=== PATIENT | male | born 1945 | race Caucasian/White ===

== ENCOUNTER 2017-02-19 20:54 | Inpatient (IN) | payer MEDICARE ==
[~2017-02-19] VITALS: Ht 175.3 cm; Wt 45.0 kg
--- NOTE | ~2017-02-19 | PR ---
[place], [place] PROGRESS NOTE [facility] [id number] UNIT #: [id number] ROOM: 412 DOCTOR: SALTY ASHRAF MD,SHEILA BIRTHDATE: [birth year] DOS: 02/21/2017 PULMONARY PROGRESS NOTE SUBJECTIVE: The patient has been noted upset this morning. Respiratory cifuentes, he has been doing much better. The respiratory symptoms of the patient have been improving with reduction in the cough, wheezing and shortness breath. Denies symptoms of chest pain, nausea, vomiting, or diarrhea. OBJECTIVE: VITAL SIGNS: For the patient which have been recorded showed normal temperature, respiratory rate 16, heart rate 57, blood pressure 106/54. Pulse oxygen saturation on 3 liters nasal canula 99% saturation. HEENT: Examination shows head was atraumatic. Eyes nonicterus. NECK: Supple. CARDIOVASCULAR: S1, S2 audible. LUNGS: Noted without any wheezing or crackles at the present time. Breaths are noted mildly decreased bilaterally. ABDOMEN: Soft and nontender. LABORATORY DATA: Prealbumin level was noted as 11. IMPRESSION: The patient with resolving acute exacerbation of chronic obstructive pulmonary disease with acute tracheobronchitis, severe protein calorie malnutrition status. Lung malignancy was suspected in the left side for this patient with gradual increase in the tumor size the patient refusal of any further assessment and management. PLAN OF TREATMENT: The patient has been noted with significant improvement and reduction of respiratory symptoms, could be considered for possible home discharge today for the patient if considered by the primary care physician. The discharge planning has been conveyed to the primary care doctor. SHEILA POND MD CM:PNTRANS [id number] SHEILA ASHRAF MD 02/22/17127 interface
--- NOTE | ~2017-02-19 | DS ---
[place], [place] DISCHARGE SUMMARY NAME: JESS CASTELLANO [facility] #: [id number] UNIT #: [id number] ROOM: 412 DOCTOR: PERRY MARIA MD BIRTHDATE: [birth year] DOS: 02/21/2017 DIAGNOSES: 1. Acute exacerbation of chronic obstructive pulmonary disease. 2. Lung mass with possible suspected lung malignancy. No workup planned. 3. Protein-calorie malnutrition. 4. Chronic respiratory failure. 5. Adult failure to thrive. MEDICATIONS: Same as at home. New prescriptions given for Ceftin 250 twice daily for 5 days and tapering dose of prednisone. HOSPITAL COURSE: This is a 71-year-old patient who presents with complaints of difficulty breathing. He was admitted under Dr. Krause's services. Breathing treatments, oxygen supplementation, antibiotics, and steroids were given. This morning, the patient states that he feels good and he wants to go home to see a grandchild. He does not want any further investigations or testing for his mass which could be an underlying malignancy. The patient also wants to be kept comfortable. The DNRCC papers were signed. Echocardiogram was ordered, which showed the patient had no pericardial effusion, normal LV function. The plan therefore is to discharge him to home today. Follow up with his PCP. PERRY MARIA MD CM:DISCHARG [id number] PERRY MARIA MD 02/21/17 1103 interface
--- NOTE | ~2017-02-19 | PR ---
[place], [place] PROGRESS NOTE NAME: JESS CASTELLANO [facility] #: [id number] UNIT #: [id number] ROOM: 412 DOCTOR: PERRY MARIA MD BIRTHDATE: [birth year] DOS: SUBJECTIVE: The patient states that he feels good and wants to go home, does not have any complaints today. His cough is loose and is coughing up sputum. OBJECTIVE: VITAL SIGNS: Blood pressure is 106/54, pulse of 50s, respirations 18, temperature 98.9. GENERAL: Quite unkempt with a long hoffman. LUNGS: Diminished breath sounds, extremely poor air entry. HEART: Regular. ABDOMEN: Soft, scaphoid. EXTREMITIES: Without any edema. ASSESSMENT AND PLAN: 1. Acute exacerbation of chronic obstructive pulmonary disease. 2. Possible malignancy of the lungs, but the patient has decided not to proceed with any further workup. 3. Protein-calorie malnutrition, severe. 4. Adult failure to thrive. The patient has already been on medicines and has made some improvement and he wants to go home today. Plan is therefore to discharge him to home. PERRY MARIA MD CM:PNTRANS 0911 PERRY MARIA MD 02/22/17 002 interface
--- NOTE | ~2017-02-19 | CON ---
[place], [place] REPORT OF CONSULTATION NAME: JESS CASTELLANO [facility] #: [id number] UNIT #: [id number] ROOM: 412 DOCTOR: SALTY ASHRAF MD,SHEILA BIRTHDATE: [birth year] DOS: 02/20/2017 PULMONARY CONSULTATION EVALUATION AND MANAGEMENT REASON FOR CONSULTATION: Assess the patient with progressively enlarging mass for the patient in the left lung as well as increase in his respiratory symptoms of COPD exacerbation. HISTORY OF PRESENT ILLNESS: This is a 71-year-old white male presented to the hospital Emergency Room for patient on 02/19/2017. The patient has been noted with progressive increased symptoms of shortness of breath, which has been ongoing for the past several days. The patient has been noted with symptoms of chest congestion, increased coughing, inability to expectorate sputum. Denies symptoms of chest pain, but noted with symptoms of progressive increased symptoms prior to taking his medication nebulizer at home. He has been also using the oxygen supplementation as well, currently 6 L of nasal cannula. The patient stated that the medication use has not been working, he decided to come to the hospital after assessment in the Emergency Room, noted with recurrent acute exacerbation of COPD, the patient has been hospitalized. REVIEW OF SYSTEMS: CONSTITUTIONAL: Fatigue and tiredness noted without any symptoms of fever or chills. EYES: Denies any burning, redness, or tenderness. EARS, NOSE AND THROAT: No sore throat, hoarseness, otalgia, or postnasal drainage. GASTROINTESTINAL: Denies any dysphagia, nausea, vomiting, diarrhea, abdominal pain, hematemesis, melena, or hematochezia. The patient has been noted gradual weight loss, has lost about 10 or 12 pounds of body weight for the patient in the last 4 months. GENITOURINARY: No dysuria, suprapubic pain, or hematuria. MUSCULOSKELETAL: Denies acute joint pain, redness, or tenderness. SKIN: No lesions or rashes. CENTRAL NERVOUS SYSTEM: Denies dizziness, headache or diplopia. Remaining systems was reviewed with the patient, they were noted all negative. PAST MEDICAL HISTORY: The patient was noted with, 1. History of advanced centrilobular emphysema. 2. Chronic hypoxic respiratory failure, current use of oxygen supplementation 4 L nasal cannula. 3. Suspected lung cancer, left side, further assessment and management since his past admission of October 2016. 4. Jbud-ev-fplzrfwg senile hearing loss. 5. History of nicotine dependence for this patient intermittently. SURGICAL HISTORY: Noted catheterization and coronary artery stent insertion. The intervention was done in 1998. SOCIAL HISTORY: The patient is , has 2 children, lives at home. [place], [place] REPORT OF CONSULTATION NAME: JESS CASTELLANO UNIT #: [id number] ROOM: 412 DOCTOR: SALTY ASHRAF MD,SHEILA BIRTHDATE: [birth year] Smoking has been noted with patient intermittently with the use of tobacco pipe for this patient and cigarette smoking. Denies any history of alcohol use or illicit drug use. Denies any dependence of alcohol. 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 FAMILY HISTORY: The patient's father from complication of pancreatic cancer. Mother at 80 years old, complication related to COPD. CURRENT MEDICATIONS: Administered noted use of DuoNeb, aspirin, metoprolol tartrate, Symbicort and Rocephin. DRUG ALLERGY HISTORY: The patient was noted as no known drug allergies. PHYSICAL EXAMINATION: GENERAL: A 71-year-old white male who has been noted currently awake and alert, sitting on side of bed without any distress. Height of 5 feet 9 inches, weight of 99 pounds, BMI 14.6. VITAL SIGNS: For the patient shows a normal temperature, respiratory rate of 19-22. Heart rate of 61-101, blood pressure 91/57-125/77. Pulse oxygen saturation of the patient recorded as 100% on 3 liters canula, previously noted as 97% on 4-5 liters nasal cannula supplementation of oxygen. HEENT: Examination shows head was atraumatic. Eyes nonicterus. NECK: Supple. CARDIOVASCULAR SYSTEM: S1, S2 is audible. LUNGS: The patient was noted with diffuse expiratory wheezing. No crackles. ABDOMEN: Soft, flat, nontender. EXTREMITIES: Showed no edema, clubbing, cyanosis, loss of muscle mass. SKIN: Showed no lesions or rashes. MUSCULOSKELETAL SYMPTOMS: No acute deformities. LABORATORY DATA: CMP of the patient that was done for this patient on February 19, BUN 14, creatinine was normal. Carbon dioxide 37. Albumin 2.8. CBC of the patient on February 19 on admission, hemoglobin 9.9, hematocrit 31.8, platelet count was normal. WBC count was normal. BMP this morning, glucose 167, remaining BMP normal. CBC this morning, hemoglobin 9.4, hematocrit 30.4, platelet count was normal. WBC count remains normal. Chest x-ray of the patient that was done for the patient this morning for the patient was personally reviewed and compared to the previous chest x-ray shows progressive enlarging the nodule for the patient currently noted as a mass lesion measured at 4.7 cm in size for the patient as comparison to the chest x-ray of the patient on 10/15/2016. IMPRESSION: 1. The patient who has been currently admitted to the hospital with acute on chronic hypoxic respiratory failure for this patient requiring increased oxygen supplementation with acute exacerbation of chronic obstructive pulmonary disease and acute bronchitis. 2. Suspected lung malignancy for this patient, which has not been further assessed or treated for the patient because they refused the further workup or management as per patient. [place], [place] REPORT OF CONSULTATION NAME: JESS CASTELLANO UNIT #: [id number] ROOM: [facility] DOCTOR: SALTY ASHRAF MD,SHEILA BIRTHDATE: [birth year] 3. Anemia, most likely of chronic disease as well. 4. 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 5. History of coronary artery disease. PLAN OF TREATMENT: The patient will be continued on current dose of IV Solu-Medrol, bronchodilators and antibiotics as in progress. The dose of the Solu-Medrol for the patient will be changed, increased to 40 mg for 8 hours because of severe wheezing. The patient understands for this patient already known that he has a suspected cancer of the lung, which has been increasing and does not wish any further assessment or intervention. Other supportive therapy, plan and management as well. Increase the nutritional support for this patient with as nutritional supplements. Ordered a prealbumin level for the patient for the morning as well. Comfort measures for the patient will be continued per his code status as well. Thanks you for allowing me to participate in the care of this patient. SHEILA POND MD CM:CONSTR:REPORT OF CONSULTATION 1518 02/21/17 0304 interface
--- NOTE | ~2017-02-19 | CON ---
[place], [place] REPORT OF CONSULTATION NAME: JESS CASTELLANO [facility] #: [id number] UNIT #: [id number] ROOM: 412 DOCTOR: ANGEL ANDREWS MD BIRTHDATE: [birth year] DOS: 02/20/2017 HISTORY OF PRESENT ILLNESS: The patient is well known to me, but I have not seen him for a long time. A 71-year-old gentleman with a history of questionable emphysema and lung cancer. The patient admitted with severe shortness of breath. The patient uses 6 liters of oxygen at home. The patient became significantly short of breath. I was consulted. He had episodes of rapid atrial fibrillation, now he is back into sinus rhythm to sinus tachycardia. He was totally asymptomatic with that. No history of previous atrial fibrillation. Right now, he is comfortable, does have shortness of breath, no chest pain, no GI issues. No neurological issues. Appears to be anxious. PAST MEDICAL HISTORY: COPD, myocardial infarction, lung cancer, hypertension, noncompliance. PAST SURGICAL HISTORY: History of cardiac stent. The patient also had a lot of pneumonia in the past. SOCIAL HISTORY: Heavy smoker. Denies any alcohol abuse. FAMILY HISTORY: Positive for coronary artery disease. REVIEW OF SYSTEMS: RESPIRATORY: He has significant shortness of breath. HEENT: Does have some visual disturbances. CARDIOVASCULAR: No chest discomfort, did have palpitation. GASTROINTESTINAL: No nausea, no vomiting. GENITOURINARY: No dysuria, hematuria. NEUROLOGIC: No syncope. All other review of systems are negative. PHYSICAL EXAMINATION: VITAL SIGNS: His blood pressure is 110/70. He is now back into sinus rhythm. NECK: Supple, no JVD, no thyromegaly, no lymphadenopathy. LUNGS: Diminished breath sounds bilaterally with severe coarse wheezing. HEART: Sounds are regular. ABDOMEN: Soft, nontender. NEUROLOGICAL: Stable. LABORATORY DATA: Hemoglobin 9, hematocrit 31.8. Electrolytes are normal. Troponins have been negative. Chest x-ray shows emphysema, no obvious evidence of pneumonia. Potassium is 4.4, magnesium is 2.4, protein is 6.8. Liver functions are normal. Creatinine is 0.81. Chest x-ray revealed left perihilar mass, it is again demonstrated larger than before. IMPRESSION: The patient with chronic obstructive pulmonary disease, lung cancer, episode of supraventricular tachycardia, history of myocardial infarction. [place], [place] REPORT OF CONSULTATION [id number] UNIT #: [id number] ROOM: 412 DOCTOR: ANGEL ANDREWS MD BIRTHDATE: [birth year] RECOMMENDATIONS: The patient used to be on atenolol in the past, and he stopped taking it because he ran out, and he had episodes of supraventricular tachycardia. I am going to start him on metoprolol 25 mg twice a day because of his known coronary artery disease and supraventricular tachycardia. Continue the other medications as ordered. We will get an echocardiogram to assess his ejection fraction. Continue the chronic obstructive pulmonary disease management, and I will follow up. ANGEL ANDREWS MD CM:CONSTR:REPORT OF CONSULTATION 0801 02/20/17 0839 interface
--- NOTE | ~2017-02-19 | WRIGHTHP ---
[place], [place] PATIENT HISTORY AND PHYSICAL EXAM NAME: JESS CASTELLANO [facility] #: [id number] UNIT #: [id number] ROOM: 412 DOCTOR: LUIS DE LUNA MD BIRTHDATE: [birth year] DOS: HISTORY OF PRESENT ILLNESS: 1. The patient is a 71-year-old gentleman with a past medical history of left upper lung mass, increasing in size, probable malignancy. The patient decided any further investigation or treatment. 2. Chronic end-stage advanced COPD with oxygen dependence and chronic respiratory failure. 3. Generalized weakness and adult failure to thrive. 4. The patient developed some increased shortness of breath, wheezing and cough and presented to the Emergency Department. For acute over chronic respiratory failure, we have the DNR-CC arrest code status at this time. After admission, the patient says his breathing has significantly improved with treatment and he is feeling much better. The patient had some purulent sputum prior to coming to the hospital and he said he was not eating well because of his sputum production for some reason. No chest pain, no dizziness or fainting episode. No other GI or urinary symptoms. REVIEW OF SYSTEMS: LUNGS: Acute over chronic shortness of breath and purulent sputum. GASTROINTESTINAL: No nausea, vomiting, diarrhea, constipation. CARDIOVASCULAR: No chest pains or palpitations. SOCIAL HISTORY: The patient lives by himself. Denies smoking cigarettes anymore. Denies any alcohol or drug abuse. FAMILY HISTORY: Noncontributory. ALLERGIES: No known drug allergy. PHYSICAL EXAMINATION: VITAL SIGNS: Blood pressure 118/65, heart rate of 98 beats per minute, breathing 18 times per minute, temperature 98 degrees Fahrenheit. GENERAL APPEARANCE: The patient is alert and oriented x 3, in no visible distress. Generalized weakness, generalized muscle wasting. HEENT AND NECK: Extraocular movements are intact. Sclerae are anicteric. Oral mucosa is moist and clean. No obvious facial weakness. Neck is supple without any lymphadenopathy. No thyromegaly. No JVD. No carotid arterial bruits. LUNGS: Decreased breath sounds all over on lung auscultation and slight expiratory wheezing. CARDIOVASCULAR SYSTEM: Heart rate is regular in rate and rhythm. S1 and S2 normally audible. No significant murmur or any other abnormal cardiac sounds. ABDOMEN: Soft, nontender. No obvious organomegaly. Bowel sounds are present. No obvious herniation. EXTREMITIES: Without significant cyanosis or edema. Warm to touch. CENTRAL NERVOUS SYSTEM: Alert and oriented x 3. Cranial nerves 2- 12 are intact. Speech is normal. The patient is able to move all extremities. Normal muscle strength. Deep tendon reflexes are equal on both sides. Plantars were [place], [place] PATIENT HISTORY AND PHYSICAL EXAM [id number] UNIT #: [id number] ROOM: [facility] DOCTOR: LUIS DE LUNA MD BIRTHDATE: [birth year] downgoing. LABORATORY DATA: Chest x-ray showing left perihilar mass, appearing larger than last exam. Normal serum electrolytes. Albumin level low at 2.8. Normal serum electrolytes, hemoglobin 9.4. IMPRESSION: The patient has acute over chronic respiratory failure and exacerbation of COPD, treated with oxygen, corticosteroids, bronchodilators, and antibiotic, and his breathing has significantly improved and is feeling much better. I will also get a sputum culture. Left perihilar mass, increasing in size, apparently malignant. The patient had decided against any further testing or treatment in [address]. Delvalle to evaluate the patient. The patient used to maintain a DNR comfort care code status, at this time is labeled as having DNR arrest code status so he has been put on a hide shaker. The patient developed some supraventricular tachycardia during the night and Dr. Retana, the spar machine operator, was consulted, who started him on metoprolol and his heart rate seems to be well controlled now. Generalized weakness and adult failure to thrive. The patient to work with Physical Therapy and we are taking bedsore precautions including using an air mattress and every 2 hour turning and taking fall precautions. Moderate protein-calorie malnutrition with albumin level of 2.8. Dietary to work with the patient. LUIS DE LUNA MD CM:HISPHYS:PATIENT HISTORY AND PHYSICAL EXAMINATION 26 03 LUIS DE LUNA MD 02/20/17 2004 interface
[~2017-02-19 20:54] MED LIST: ALBUTEROL2.5 MG/0.5 INH; AMOXICILLIN500 MG PO; ANTIBIOTIC O500 U/GM TP; ASPIRIN EC325 MG PO; ATIVAN ORAL C2 MG/ML PO; AUGMENTIN 875-875 MG PO; CLARITIN10 MG PO; DARVOCET N 1001 TAB PO; HYDROCODONE BIT1 T11 PO; MEDROL DOSEPAK4 MG PO; MORPHINE S20 MG/1 ML PO; SPIRIVA18 MCG PO; SYMBICORT1 AE1 INH; ULTRAM50 MG PO; ZITHROMAX Z PA250 MG PO
[2017-02-19 21:01] VITALS: BP 136/86
[2017-02-19 22:13] LABS: BASO % 0.4 % (0.0-1.0); EOS # 0.4 10*3/uL (0.0-0.4); EOS % 4.1 % (1.0-4.0); HEMATOCRIT 31.8 % (42.0-52.0); HEMOGLOBIN 9.9 g/dl (14.0-18.0); LYMPH # 1.5 10*3/uL (1.3-4.4); LYMPH % 15.1 % (27.0-41.0); MEAN CORPUSCULAR HGB 30.2 pg (27.0-31.0); MEAN CORPUSCULAR HGB CONC 31.1 g/dl (33.0-37.0); MEAN PLATELET VOLUME 8.8 fl (9.6-12.3); MONO # 0.7 10*3/uL (0.1-1.0); MONO % 7.3 % (3.0-9.0); NEUT # 7.2 10*3/uL (2.3-7.9); NEUT % 72.9 % (47.0-73.0); PLATELET COUNT AUTOMATED 324 10*3/uL (130-400); RED BLOOD COUNT 3.28 10*6/uL (4.50-5.90); RED CELL DISTRI WIDTH 13.9 % (0-14.5); WHITE BLOOD COUNT 9.9 10*3/uL (4.8-10.8)
[2017-02-19 22:31] LABS: ALBUMIN 2.8 gm/dl (3.1-4.5); ALKALINE PHOSPHATASE 71 U/L (45-117); BILIRUBIN, TOTAL 0.2 mg/dl (0.2-1.0); BUN 14 mg/dl (7-24); CARBON DIOXIDE 37 mmol/L (21-32); CHLORIDE 98 mmol/L (98-107); EST GLOM FILT AFRICAN AMERICAN > 60 ml/min; GLUCOSE 103 mg/dL (65-99); MAGNESIUM 2.4 mg/dL (1.5-2.1); POTASSIUM 4.4 mmol/L (3.5-5.1); SGOT/AST 24 IU/L (3-35); SGPT/ALT 13 U/L (12-78); SODIUM 140 mmol/L (136-145); TOTAL PROTEIN 6.8 gm/dL (6.4-8.2)
[2017-02-19 22:32] LABS: TROPONIN I < 0.015 ng/ml (<0.045)
[2017-02-19 22:45] VITALS: BP 125/77
[2017-02-19 23:39] VITALS: BP 118/66
[2017-02-20 01:05] VITALS: BP 118/65
[2017-02-20 01:30] VITALS: BP 118/65
[2017-02-20] MEDS ORDERED: DALI500T PO (01:51)
[2017-02-20 06:49] LABS: HEMATOCRIT 30.4 % (42.0-52.0); HEMOGLOBIN 9.4 g/dl (14.0-18.0); MEAN CELL VOLUME 95.6 fl (80.0-94.0); MEAN CORPUSCULAR HGB 29.6 pg (27.0-31.0); MEAN CORPUSCULAR HGB CONC 30.9 g/dl (33.0-37.0); MEAN PLATELET VOLUME 9.1 fl (9.6-12.3); PLATELET COUNT AUTOMATED 336 10*3/uL (130-400); RED BLOOD COUNT 3.18 10*6/uL (4.50-5.90); RED CELL DISTRI WIDTH 13.8 % (0-14.5); WHITE BLOOD COUNT 8.1 10*3/uL (4.8-10.8)
[2017-02-20 07:15] LABS: BUN 14 mg/dl (7-24); CARBON DIOXIDE 30 mmol/L (21-32); CHLORIDE 102 mmol/L (98-107); EST GLOM FILT AFRICAN AMERICAN > 60 ml/min; GLUCOSE 167 mg/dL (65-99); POTASSIUM 4.4 mmol/L (3.5-5.1); SODIUM 142 mmol/L (136-145)
[2017-02-20 07:29] LABS: LYMPHOCYTE # 0.4 10*3/uL (1.3-4.4); MONOCYTE # 0.1 10*3/uL (0.1-1.0); NEUTROPHIL # 7.6 10*3/uL (2.3-7.9); NEUTROPHILS 94 % (47-73); PLATELET SUFFICIENCY NORMAL (NORMAL); TOTAL CELLS COUNTED 100 #CELLS
[2017-02-20 08:00] VITALS: BP 98/52
[2017-02-20 12:00] VITALS: BP 91/57
[2017-02-20 16:00] VITALS: BP 109/61
[2017-02-20 20:00] VITALS: BP 109/62
[2017-02-20] MEDS ORDERED: ATIVAN ORAL C2 MG/ML PO (23:32)
[2017-02-21] VITALS: BP 91/57
[2017-02-21 07:57] VITALS: BP 106/54
[2017-02-21] MEDS ORDERED: PREDNISONE5 MG PO (09:12)
[2017-02-21] MEDS ORDERED: CEFUROXIME AXE250 MG PO (09:12)
== END 2017-02-21 11:10 | disposition home health service (06) | DRG 189 ==
LOC: ED 20:54 → EDHOLD 23:04 → 4E 23:04
PROVIDERS: Emergency Medicine Emergency Medical Services; Internal Medicine
DX: J96.20 Acute and chronic respiratory failure, unspecified whether with hypoxia or hypercapnia (principal); E43 Unspecified severe protein-calorie malnutrition; C34.92 Malignant neoplasm of unspecified part of left bronchus or lung; F03.90 Unspecified dementia, unspecified severity, without behavioral disturbance, psychotic disturbance, mood disturbance, and anxiety; Z99.81 Dependence on supplemental oxygen; J44.1 Chronic obstructive pulmonary disease with (acute) exacerbation; D64.9 Anemia, unspecified; I10 Essential (primary) hypertension; I47.1 Supraventricular tachycardia; R64 Cachexia; Z68.1 Body mass index [BMI] 19.9 or less, adult; Z66 Do not resuscitate; R62.7 Adult failure to thrive; I25.10 Atherosclerotic heart disease of native coronary artery without angina pectoris; R91.8 Other nonspecific abnormal finding of lung field; Z95.818 Presence of other cardiac implants and grafts; Z80.0 Family history of malignant neoplasm of digestive organs; Z80.2 Family history of malignant neoplasm of other respiratory and intrathoracic organs; I25.2 Old myocardial infarction; Z91.19 Patient's noncompliance with other medical treatment and regimen; Z85.118 Personal history of other malignant neoplasm of bronchus and lung

== ENCOUNTER 2017-02-22 20:24 | Inpatient (IN) | payer MEDICARE ==
[~2017-02-22] VITALS: Ht 175.3 cm; Wt 45.4 kg
--- NOTE | ~2017-02-22 | CON ---
[place], [place] REPORT OF CONSULTATION NAME: JESS CASTELLANO [facility] #: [id number] UNIT #: [id number] ROOM: 405 DOCTOR: SHEILA MILLER MD BIRTHDATE: [birth year] DOS: 02/23/2017 PULMONARY CONSULTATION EVALUATION AND MANAGEMENT REASON FOR CONSULTATION: To assess the patient for symptoms of increased shortness of breath at home. HISTORY OF PRESENT ILLNESS: This is a 71 years old white male who has been admitted at this time in the hospital, treated for acute exacerbation of COPD with marked improvement and resolution of the respiratory symptoms and discharged for this patient on 02/21/2017 on home settings. The patient had been only using albuterol sulfate nebulizer medication for the medical management of COPD and has not been able to afford or take any other medication for the respiratory symptom for the medical management of severe COPD with chronic hypoxic respiratory failure. The patient stated that he had taken the prednisone, which was prescribed and the antibiotic and he has been noted with increased shortness of breath, came back to the hospital and was readmitted patient to the hospital after 24 hours. The patient was denying any symptoms of significant cough. Cough has been noted mild. The wheezing of the patient has been noted intermittently. Denies any symptoms of chest pain or any abdominal pain. The vital signs for the patient, which has been recorded showed the temperature of the patient noted as normal for this patient on admission. The patient was assessed in the Emergency Room for this patient at this time and noted with mild elevation of lactic acid as well. The chest x-ray of the patient was done, which does not show any acute pulmonary infiltration. REVIEW OF SYSTEMS: CONSTITUTIONAL SYMPTOMS: He had noted symptoms of fatigue and tiredness. Denies symptoms of fever or chills. EYES: Denies any burning, redness, or tenderness. EARS, NOSE, THROAT SYMPTOMS: No sore throat, hoarseness, otalgia, postnasal drainage or epistaxis. CARDIOVASCULAR SYSTEM: Denies anginal pain, edema of the lower extremities or palpitations. GASTROINTESTINAL SYMPTOMS: Denies dysphagia, nausea, vomiting, diarrhea, abdominal pain, hematemesis, melena, or hematochezia. GENITOURINARY SYMPTOMS: Denies dysuria, suprapubic pain, or hematuria. MUSCULOSKELETAL SYMPTOMS: Denies acute joint pain, redness, or tenderness. SKIN: No lesions or rashes. CENTRAL NERVOUS SYSTEM: Denies dizziness, headache, diplopia or syncopal episodes. Remaining systems were reviewed. They were noted all negative. Past medical history of the patient, surgical history, social history, family history has been reviewed with the patient and remains unchanged for this patient since consultation, which was done for the patient 02/20/2017 on his recent admission. Please refer to that consultation report for the patient for any additional information if necessary, which is available in the [facility]. [place], [place] REPORT OF CONSULTATION NAME: JESS CASTELLANO UNIT #: [id number] ROOM: 405 DOCTOR: SALTY ASHRAF MD,SHEILA BIRTHDATE: [birth year] CURRENT MEDICATIONS ADMINISTERED: Were noted as use of Daliresp, aspirin, Dulera, IV Solu-Medrol, lorazepam, Rocephin and other p.r.n. medications administration. DRUG ALLERGIES HISTORY: Noted as no known drug allergies. PHYSICAL EXAMINATION: GENERAL: A 71 years old male who has been noted currently awake and alert without any distress. Height of 5 feet 9 inches, weight of 100 pounds recorded, BMI 14.8. VITAL SIGNS: Shows normal temperature, respiratory rate 18-20, heart rate of 50-103, blood pressure 140/69 this morning. Intake 770 for this patient recorded, output was 925 mL. Pulse oxygen saturation on 4 L nasal cannula of the patient was noted as 98% saturation. HEENT: Head was atraumatic. Loss of muscle mastication. NECK: Supple. CARDIOVASCULAR SYSTEM: S1, S2 is audible. LUNGS: The patient was noted without any wheeze or crackles at the present time. ABDOMEN: Soft, nontender. Bowel sounds were present. LABORATORY DATA: Chest x-ray of the patient repeated for the patient on 02/22/2017 for the patient was noted with a large mass of the patient as noted previously in the left lung remains essentially unchanged. Small linear atelectasis noted in the right lower lobe as well. CBC of patient was noted with WBC count of 13.2, hemoglobin 11.4, hematocrit 37.0, platelet count of the patient was noted as 398,000. The BMP of patient that was done yesterday was noted as CO2 35, remaining BMP normal. Lactic acid of the patient noted 2.4-2.8 and then 4.1. IMPRESSION: 1. The patient who has been noted with acute exacerbation of chronic obstructive pulmonary disease with acute tracheobronchitis with early sepsis of the patient with history of noncompliance to the treatment, use of possible smoking cigarettes as well and not using all the appropriate needed medication for the medical management of chronic obstructive pulmonary disease. 2. Suspected lung cancer of the patient. The patient refuses to have any further workup done for that reason. 3. Moderate to severe protein calorie malnutrition related to the malignancy and advanced emphysema. PLAN OF TREATMENT: The patient will be continued with the current plan of management at this time as scheduled. He will be continued on the Solu-Medrol, bronchodilator and antibiotics. Monitor culture results as well. Oxygen supplementation. Nutrition support for the patient to be given to the patient additionally, because of severe protein calorie malnutrition. Usual care. Thanks for allowing me to participate in the care of this patient. [place], [place] REPORT OF CONSULTATION NAME: JESS CASTELLANO [place] UNIT #: [id number] ROOM: 405 DOCTOR: SHEILA MILLER MD BIRTHDATE: [birth year] SHEILA POND MD CM:CONSTR:REPORT OF CONSULTATION 1340 02/24/17 0315 interface
--- NOTE | ~2017-02-22 | PR ---
[place], [place] PROGRESS NOTE NAME: JESS CASTELLANO UNIT #: [id number] ROOM: 405 DOCTOR: SHEILA MILLER MD BIRTHDATE: [birth year] DOS: 02/25/2017 PULMONARY PROGRESS NOTE SUBJECTIVE: He had been comfortably sitting on the side of the bed, eating his breakfast. Denies symptoms of chest pain or abdominal pain. The patient has been consuming more calories for this patient. Shortness of breath and other symptoms of the patient has been improving. He has been suggested for the alf facility placement, but the patient adamantly refused to do so. He was continued on the steroids and other plan of management. OBJECTIVE: VITAL SIGNS: For the patient, which have been recorded shows normal temperature, respiratory rate of 18, heart rate of 94, blood pressure 113/74-96/55. HEENT: Examination shows head was atraumatic. Eyes nonicterus. NECK: Supple. CARDIOVASCULAR SYSTEM: S1, S2 audible. LUNGS: The patient was noted with moderate decreased breath sounds with questionable wheezing, no crackles. ABDOMEN: Soft, nontender. IMPRESSION: 1. The patient with gradual resolution has been noted for this patient with acute exacerbation of chronic obstructive pulmonary disease with acute tracheobronchitis for this patient. 2. Protein calorie malnutrition. PLAN OF TREATMENT: Continue the patient's current plan of management for the patient except reduction of Solu-Medrol for the patient will be done for this patient to the b.i.d. dosing to 30 mg b.i.d. Possible discharge for the patient could be considered in the morning as the patient refused to follow the other recommendations. He does understand the risk of not following with the instructions. He was also noted with lung malignancy for this patient suspected strongly for the patient and does not wish to have any further assessment done. [place], [place] PROGRESS NOTE NAME: JESS CASTELLANO UNIT #: [id number] ROOM: 405 DOCTOR: SHEILA MILLER MD BIRTHDATE: [birth year] SHEILA POND MD CM:PNTRANS [phone] SHEILA ASHRAF MD 02/25/17 6885 interface
--- NOTE | ~2017-02-22 | WRIGHTHP ---
[place], [place] PATIENT HISTORY AND PHYSICAL EXAM NAME: JESS CASTELLANO [facility] #: [id number] UNIT #: [id number] ROOM: 405 DOCTOR: PERRY MARIA MD BIRTHDATE: [birth year] DOS: HISTORY OF PRESENT ILLNESS: The patient is 71-year-old known to me from a previous admission. The patient was here last week and on Friday stated that he wanted to go home. He was discharged, comes back again on Friday afternoon saying that he wants to be admitted back because he is increasingly short of breath. He denied having any chest pains or palpitations, does not have any fever or chills, does not have any abdominal pain, nausea, any emesis. PAST MEDICAL HISTORY: Significant for: 1. Lung mass, most likely malignant because of continued growth. 2. COPD, centrilobular emphysema. 3. Protein calorie malnutrition. 4. Chronic respiratory failure. 5. Adult failure to thrive. MEDICATIONS: He is on are Daliresp 500 mcg daily, Spiriva 1 puff at bedtime, Symbicort 160 two puffs twice daily, aspirin 325 daily, lorazepam 0.5 q.6, he is also on Ceftin and prednisone when discharged recently. SOCIAL HISTORY: Nonsmoker. PHYSICAL EXAMINATION: GENERAL: The patient is awake and alert and oriented in baseline shortness of breath, maybe always. VITAL SIGNS: Blood pressure is 138/86, pulse of 50, respirations 18, temperature 98.7. LUNGS: Diminished breath sounds, very poor air entry. I did not hear any wheezes and rhonchi. HEART: Regular. ABDOMEN: Soft, scaphoid. EXTREMITIES: Without any edema. ASSESSMENT AND PLAN: 1. The patient with end-stage chronic obstructive pulmonary disease. He does not appear to have an exacerbation but he has acute respiratory distress syndrome and was admitted, IV steroids and antibiotics were ordered. No pneumonia seen on a chest x-ray. 2. Lung mass is increasing in size, most likely a malignancy. The patient did not want any investigation; he wanted to be comfort care. He tells me that he was on hospice in October and was over medicated with morphine and so he went off the hospice. He does not want to go back on hospice and suggested he go to a shelter home for rehabilitation, he will consider it. Social Service will be consulted for possibility of short term placement for rehabilitation. His overall, prognosis remains poor and guarded. 3. Protein calorie malnutrition with failure to thrive. The patient states that he has no problems, eating well, we can add supplements. [place], [place] PATIENT HISTORY AND PHYSICAL EXAM NAME: JESS CASTELLANO UNIT #: [id number] ROOM: 405 DOCTOR: PERRY MARIA MD BIRTHDATE: [birth year] PERRY MARIA MD CM:HISPHYS:PATIENT HISTORY AND PHYSICAL EXAMINATION [phone] PERRY MARIA MD 02/23/17 1242 interface
--- NOTE | ~2017-02-22 | PR ---
[place], [place] PROGRESS NOTE NAME: JESS CASTELLANO [facility] #: [id number] UNIT #: [id number] ROOM: 405 DOCTOR: PERRY MARIA MD BIRTHDATE: [birth year] DOS: SUBJECTIVE: The patient is about the same does not have any new complaints. Denies any chest pains, palpitations. He does not want to go to [facility]; right now he wants to go home. OBJECTIVE: VITAL SIGNS: Blood pressure is 96/55, pulse of 81, respirations 18, temperature 98.1. LUNGS: Diminished breath sounds. HEART: Regular. ABDOMEN: Obese, soft, nontender. EXTREMITIES: Without any edema. ASSESSMENT AND PLAN: 1. Acute exacerbation of chronic obstructive pulmonary disease. Cultures are negative. 2. Lactic acidosis, most likely from the underlying large malignancy. 3. Lung mass, most likely malignant. The patient's mass keeps increasing in size does not want any workup. 4. Adult failure to thrive suggested [facility] placement but the patient is refusing. We will discharge him tomorrow. PERRY MARIA MD CM:PNTRANS [phone] PERRY MARIA MD 02/25/172123 interface
--- NOTE | ~2017-02-22 | DS ---
[place], [place] DISCHARGE SUMMARY NAME: JESS CASTELLANO [facility] #: [id number] UNIT #: [id number] ROOM: 405 DOCTOR: PERRY MARIA MD BIRTHDATE: [birth year] DOS: 02/26/2017 DIAGNOSES: 1. Acute exacerbation of chronic obstructive pulmonary disease. 2. Lung mass, worsening in size. 3. Adult failure to thrive. 4. Protein calorie malnutrition. HOSPITAL COURSE: This patient is 71 years old, has had multiple admissions with shortness of breath. The patient was admitted, was placed on steroids, antibiotics, breathing treatments. Dr. Delvalle was consulted. Medication regimen was continued. I did discuss with the patient about going to rehab for skilled. He did not want to go to home with hospice because he had it before and does not like hospice services. He told me that he did not want to be overmedicated with morphine. He is eating poorly. Supplements were given. His overall prognosis is poor because of his end-stage COPD as well as a lung mass. Again, no workup is planned for the lung mass. The patient is stable and can be discharged back to the long-term. He was advised a long-term placement, but he has refused that also. DISCHARGE MEDICATIONS: Ceftin 250 twice daily for 5 days, Spiriva 1 puff at bedtime, DuoNeb q.i.d., aspirin 325 daily, lorazepam 0.5 q. 6, Symbicort 2 puffs twice daily ____, Daliresp 500 mcg daily, prednisone tapering dose. PERRY MARIA MD CM:DISCHARG [phone] PERRY MARIA MD 02/26/17906 interface
--- NOTE | ~2017-02-22 | PR ---
[place], [place] PROGRESS NOTE NAME: JESS CASTELLANO UNIT #: [id number] ROOM: 405 DOCTOR: SALTY ASHRAF MD,SHEILA BIRTHDATE: [birth year] DOS: 02/26/2017 SUBJECTIVE: He was seen and examined 02/26/2017. He has been comfortably resting on his bed. Shortness of breath and other symptoms have been progressively resolving. He would like to be discharged home today since he has been feeling better. OBJECTIVE: VITAL SIGNS: Normal temperature, respiratory rate 18, heart rate 90, blood pressure 122/70. Pulse oxygen saturation on 3 L nasal cannula was 100% saturation recorded. HEENT: Examination showed no new change. NECK: Supple. CARDIOVASCULAR: S1, S2 audible. LUNGS: The patient was noted without any wheezing or crackles at this time. The breaths are noted mildly decreased bilaterally. ABDOMEN: Soft, nontender. IMPRESSION: 1. Resolving acute exacerbation of chronic obstructive pulmonary disease with acute tracheobronchitis, suspected lung cancer. No intervention per patient or assessment. 2. Severe protein-calorie malnutrition. 3. History of noncompliance. PLAN OF TREATMENT: The patient is adamant for home discharge and will be discharged home with home health services. He was advised to use the regular respiratory medications, avoid from tobacco use and also take increased calorie support. The patient remains at risk of recurrent hospitalization for the patient because of lack of appropriate medication for the patient to be used in the home settings. He does not follow up in my office on regular basis as well at this time. SHEILA POND MD CM:PNTRANS [id number] SHEILA ASHRAF MD 02/26/17 1147 interface
--- NOTE | ~2017-02-22 | PR ---
[place], [place] PROGRESS NOTE NAME: JESS CASTELLANO [facility] #: [id number] UNIT #: [id number] ROOM: 405 DOCTOR: SALTY ASHRAF MD,SHEILA BIRTHDATE: [birth year] DOS: 02/24/2017 PULMONARY FOLLOWUP SUBJECTIVE: She has been noted with continued reduction and improvement in the respiratory symptoms. The shortness of breath, the patient has been resolving. The coughing has been noted minimal. There were no symptoms of chest pain. There was no abdominal pain. OBJECTIVE: VITAL SIGNS: Of the patient, which have been recorded shows the temperature noted normal, respiratory rate 18, heart rate 92, blood pressure 111/58. Pulse oxygen saturation on 2 liters nasal cannula 99% saturation recorded. HEENT: Chronic obesity. NECK: Supple. CARDIOVASCULAR: S1, S2 audible. LUNGS: Noted with [id number] decreased breath sounds with no wheezing. No crackles. ABDOMEN: Soft, nontender. IMPRESSION: 1. The patient with resolving acute exacerbation of chronic obstructive pulmonary disease with acute tracheobronchitis. 2. History of noncompliance and insufficient medications use. 3. Suspected lung cancer in the left lung for this patient. 4. [id number]-[id number] protein calorie malnutrition. PLAN OF TREATMENT: Continue increased calorie support, bronchodilators, oxygen supplementation, antibiotics, and Solu-Medrol. SHEILA POND MD CM:PNTRANS [phone] SHEILA ASHRAF MD 02/25/17 0400 interface
--- NOTE | ~2017-02-22 | PR ---
[place], [place] PROGRESS NOTE [facility] [id number] UNIT #: [id number] ROOM: 405 DOCTOR: PERRY MARIA MD BIRTHDATE: [birth year] DOS: 02/26/2017 SUBJECTIVE: The patient is doing fine without any complaints. Denies any chest pains, palpitations or shortness of breath. OBJECTIVE: VITAL SIGNS: Blood pressure is 122/70, pulse of 90, respirations 18, temperature 97.8. LUNGS: Diminished breath sounds, clear. HEART: Regular. ABDOMEN: Soft, scaphoid. EXTREMITIES: Without any edema. ASSESSMENT AND PLAN: 1. Exacerbation of chronic obstructive pulmonary disease, improving. 2. Adult failure to thrive. The patient refuses to go to a rehab, but he is stable enough and improved enough to be discharged to home, but he is advised that if he comes back in again, he will need to be going to a rehab for a prolonged stay. PERRY MARIA MD CM:PNTRANS [phone] PERRY MARIA MD 02/26/17 1348 interface
--- NOTE | ~2017-02-22 | PR ---
[place], [place] PROGRESS NOTE NAME: JESS CASTELLANO [facility] #: [id number] UNIT #: [id number] ROOM: 405 DOCTOR: PERRY MARIA MD BIRTHDATE: [birth year] DOS: 02/24/2017 SUBJECTIVE: The patient is resting comfortably, does not have any complaints. OBJECTIVE: VITAL SIGNS: Blood pressure is 138/67, pulse of 80s, respirations 20, temperature 98.1. LUNGS: Clear, but diminished. HEART: Regular. ABDOMEN: Soft, scaphoid. EXTREMITIES: Without any edema. ASSESSMENT AND PLAN: 1. End-stage chronic obstructive pulmonary disease, oxygen dependent with chronic respiratory failure. 2. Lung mass, no workup is planned. 3. Adult failure to thrive, look for a bed at [facility]. 4. Protein-calorie malnutrition, getting supplements. PERRY MARIA MD CM:PNTRANS [phone] PERRY MARIA MD 02/25/17 0027 interface
--- NOTE | ~2017-02-22 | EKG ---
[place], [place] ELECTROCARDIOGRAM REPORT NAME: JESS CASTELLANO UNIT #: [id number] ROOM: 405 DOCTOR: ELÍAS POWER MD BIRTHDATE: [birth year] DOS: 02/22/2017 TIME: 2112. FINDINGS: 1. Sinus rhythm at the rate of 90. 2. Low voltage in standard limb leads. 3. Possible left atrial enlargement. 4. Nonspecific T-wave abnormalities in the inferior leads. 5. Abnormal electrocardiogram. ELÍAS POWER MD CM:EKGRPT:ELECTROCARDIOGRAM REPORT 46 44 ELÍAS POWER MD
[~2017-02-22 20:24] MED LIST changes: +CEFUROXIME AXE250 MG PO; +DALI500T PO; +PREDNISONE5 MG PO
[2017-02-22 20:34] VITALS: BP 149/86
[2017-02-22 21:14] LABS: HEMOGLOBIN 11.4 g/dl (14.0-18.0); MEAN CELL VOLUME 97.1 fl (80.0-94.0); MEAN CORPUSCULAR HGB 29.9 pg (27.0-31.0); MEAN CORPUSCULAR HGB CONC 30.8 g/dl (33.0-37.0); MEAN PLATELET VOLUME 8.9 fl (9.6-12.3); PLATELET COUNT AUTOMATED 398 10*3/uL (130-400); RED BLOOD COUNT 3.81 10*6/uL (4.50-5.90); RED CELL DISTRI WIDTH 14.1 % (0-14.5); WHITE BLOOD COUNT 13.2 10*3/uL (4.8-10.8)
[2017-02-22 21:26] VITALS: BP 140/86
[2017-02-22 21:34] LABS: LYMPHOCYTE # 0.4 10*3/uL (1.3-4.4); MONOCYTE # 0.1 10*3/uL (0.1-1.0); NEUTROPHIL # 12.7 10*3/uL (2.3-7.9); NEUTROPHILS 96 % (47-73); PLATELET SUFFICIENCY NORMAL (NORMAL); TOTAL CELLS COUNTED 100 #CELLS
[2017-02-22 21:35] LABS: BUN 23 mg/dl (7-24); CARBON DIOXIDE 35 mmol/L (21-32); CHLORIDE 102 mmol/L (98-107); EST GLOM FILT AFRICAN AMERICAN > 60 ml/min; GLUCOSE 117 mg/dL (65-99); POTASSIUM 4.4 mmol/L (3.5-5.1); SODIUM 144 mmol/L (136-145)
[2017-02-22 21:37] LABS: TROPONIN I < 0.015 ng/ml (<0.045)
[2017-02-22 22:03] VITALS: BP 138/80
[2017-02-22 22:14] VITALS: BP 142/86
[2017-02-22 23:58] LABS: LA>2 REFLEX 2 HR DRAW NOW
[2017-02-23 00:15] LABS: LA>2 RFLX FOLLOW UP AT 2 HRS 2.8 mmol/L (0.4-2.0)
[2017-02-23 02:07] LABS: LA>2 REFLEX 4 HR DRAW NOW
[2017-02-23 08:00] VITALS: BP 148/86
[2017-02-23 12:00] VITALS: BP 140/69
[2017-02-23 16:00] VITALS: BP 157/96
[2017-02-23 20:00] VITALS: BP 141/84
[2017-02-24] VITALS: BP 138/67
[2017-02-24 08:00] VITALS: BP 111/58
[2017-02-24 12:00] VITALS: BP 105/73
[2017-02-24 16:00] VITALS: BP 104/67
[2017-02-24 20:00] VITALS: BP 123/68
[2017-02-25] VITALS: BP 96/55
[2017-02-25 08:00] VITALS: BP 113/74
[2017-02-25 12:00] VITALS: BP 127/72
[2017-02-25 16:00] VITALS: BP 126/66
[2017-02-25 20:00] VITALS: BP 102/54
[2017-02-26] VITALS: BP 113/53
[2017-02-26 08:00] VITALS: BP 122/70
[2017-02-26 12:00] VITALS: BP 127/73
== END 2017-02-26 14:29 | disposition home health service (06) | DRG 871 ==
LOC: ED 20:24 → EDHOLD 21:48 → 4E 21:48
PROVIDERS: Student in an Organized Health Care Education/Training Program
DX: A41.9 Sepsis, unspecified organism (principal); E43 Unspecified severe protein-calorie malnutrition; J18.9 Pneumonia, unspecified organism; E87.2 Acidosis; J96.11 Chronic respiratory failure with hypoxia; Z99.81 Dependence on supplemental oxygen; J44.0 Chronic obstructive pulmonary disease with (acute) lower respiratory infection; J44.1 Chronic obstructive pulmonary disease with (acute) exacerbation; Z68.1 Body mass index [BMI] 19.9 or less, adult; R62.7 Adult failure to thrive; R91.8 Other nonspecific abnormal finding of lung field; Z91.19 Patient's noncompliance with other medical treatment and regimen; J20.9 Acute bronchitis, unspecified

== ENCOUNTER 2017-03-25 21:36 | Inpatient (IN) | payer MEDICARE ==
[~2017-03-25] VITALS: Ht 175.2 cm; Wt 41.3 kg
--- NOTE | ~2017-03-25 | PR ---
[place], [place] PROGRESS NOTE NAME: JESS CASTELLANO [facility] #: [id number] UNIT #: [id number] ROOM: 401 DOCTOR: LUIS DE LUNA MD BIRTHDATE: [birth year] DOS: 03/28/2017 SUBJECTIVE: The patient continues to feel better and he is partially agreeing to going to senior care for rehabilitation. PHYSICAL EXAMINATION: VITAL SIGNS: Blood pressure 100/62, heart rate 98 beats per minute, breathing 18 times per minute, temperature 98.3 degrees Fahrenheit. GENERAL APPEARANCE: The patient is alert and oriented x 3, in no visible distress. HEENT AND NECK: Exam within normal limits. CARDIOVASCULAR SYSTEM: Heart rate is regular in rate and rhythm. S1 and S2 normally audible. LUNGS: Decreased breath sounds. ABDOMEN: Soft, nontender. No obvious organomegaly. Bowel sounds are present. EXTREMITIES: Without significant cyanosis or edema. MUSCULOSKELETAL: Generalized muscle wasting and cachexia and failure to thrive. IMPRESSION: 1. The patient with left upper lung mass, likely malignancy. The patient does not want treated. 2. Exacerbation of severe underlying chronic obstructive pulmonary disease, being treated with bronchodilators, oxygen, nebulizer treatments, corticosteroids. 3. Cachexia, adult failure to thrive, advanced weakness. The patient partly agreeing to go to senior care facility, which he requires, otherwise he was insisting to be discharged to home. 4. Moderate protein-calorie malnutrition. 5. Poor long-term prognosis. 6. The patient working with physical therapy. LUIS DE LUNA MD CM:PNTRANS [phone] LUIS DE LUNA MD 03/29/17 0159 interface
--- NOTE | ~2017-03-25 | PR ---
[place], [place] PROGRESS NOTE NAME: JESS CASTELLANO [facility] #: [id number] UNIT #: [id number] ROOM: 401 DOCTOR: LUIS DE LUNA MD BIRTHDATE: [birth year] DOS: 03/27/2017 SUBJECTIVE: The patient is very weak with end-stage lung disease, requesting to be kept in the hospital for 2 more days, then he can be discharged to home, but he is refusing to go to a rehab facility, which I feel he requires. PHYSICAL EXAMINATION: VITAL SIGNS: Blood pressure 99/65, heart rate 74 beats per minute, breathing 18 times per minute, temperature 98 degrees Fahrenheit. GENERAL APPEARANCE: The patient is alert and oriented x 3, in no visible distress. General weakness, muscle wasting, and cachexia. HEENT AND NECK: Exam within normal limits. CARDIOVASCULAR SYSTEM: Heart rate is regular in rate and rhythm. S1 and S2 normally audible. LUNGS: Decreased breath sounds on lung auscultation. ABDOMEN: Soft, nontender. No obvious organomegaly. Bowel sounds are present. EXTREMITIES: Without significant cyanosis or edema. IMPRESSION: 1. The patient with exacerbation of chronic obstructive pulmonary disease and acute over chronic respiratory failure, improving with treatment. 2. Adult failure to thrive and generalized weakness. The patient says he is not going to go to a rehab facility. Instead, he would like to go home in a couple of days. 3. Lung mass compatible with malignancy. The patient wants to be kept comfortable only and refused any further workup in the past and now. 4. Recent viral gastroenteritis with some nausea and diarrhea, apparently making him weaker and acutely dehydrated. The patient is being repleted with normal saline. 5. Moderate to severe protein-calorie malnutrition. The patient is on Boost supplements. LUIS DE LUNA MD CM:PNTRANS [phone] LUIS DE LUNA MD 03/28/17 1324 interface
--- NOTE | ~2017-03-25 | DS ---
[place], [place] DISCHARGE SUMMARY NAME: JESS CASTELLANO UNIT #: [id number] ROOM: 401 DOCTOR: LUIS DE LUNA MD BIRTHDATE: [birth year] DOS: 03/31/2017 DISCHARGE DIAGNOSES: 1. Advanced disability and adult failure to thrive. 2. Exacerbation of severe underlying chronic obstructive pulmonary disease. 3. Slowly and progressively increasing left upper lung mass, probable malignancy that patient refused any treatment for in the past and now. 4. Moderate protein-calorie nutrition. HOSPITAL COURSE: The patient presented to the Emergency Department at [facility] with increased shortness of breath and increased weakness. The patient is chronically weak and disabled and he lives at home with help. The patient was extremely weak and short of breath and he was treated with bronchodilators, corticosteroids, oxygen, and antibiotics. The patient's breathing has improved and he is being [facility]. Probable lung cancer with left upper lung mass which is not to be worked up further on patient's request. Long-term prognosis is poor. Adult failure to thrive with generalized weakness. The patient is in very poor health with moderate protein-calorie malnutrition. The patient was given nutritional supplements and he is looking stronger than when he came in and he worked with physical therapy. LABORATORY DATA: Sputum cultures grew heavy gram-negative bacilli, which were treated with antibiotics. Normal serum electrolytes. DISCHARGE MANAGEMENT: Daliresp 500 mcg daily, aspirin 325 mg a day. The patient can take Dulera twice a day inhalations, Zofran 8 mg every 6 hours IV p.r.n. for nausea, vomiting, DuoNeb every 4 hours, lorazepam 0.5 mg every 6 hours p.r.n. for anxiety. The patient is being transferred to [facility] facility for rehab. [place], [place] DISCHARGE SUMMARY NAME: JESS CASTELLANO UNIT #: [id number] ROOM: 401 DOCTOR: LUIS DE LUNA MD BIRTHDATE: [birth year] LUIS DE LUNA MD CM:DISCHARG [phone] LUIS DE LUNA MD 03/31/17 2201 interface
--- NOTE | ~2017-03-25 | PR ---
[place], [place] PROGRESS NOTE NAME: JESS CASTELLANO [facility] #: [id number] UNIT #: [id number] ROOM: 401 DOCTOR: LUIS DE LUNA MD BIRTHDATE: [birth year] DOS: 03/29/2017 SUBJECTIVE: The patient is feeling better, but says he is still not comfortable enough to go home because of the shortness of breath and generalized weakness. PHYSICAL EXAMINATION: VITAL SIGNS: Blood pressure 100/70, heart rate of 105 beats per minute, breathing 18 times per minute, temperature 97.6 degrees Fahrenheit. Generalized muscle weakness, cachexia. GENERAL APPEARANCE: The patient is alert and oriented x 3, in no visible distress. HEENT AND NECK: Exam within normal limits. CARDIOVASCULAR SYSTEM: Heart rate is regular in rate and rhythm. S1 and S2 normally audible. LUNGS: Decreased breath sounds all over with some expiratory wheezing. ABDOMEN: Soft, nontender. No obvious organomegaly. Bowel sounds are present. EXTREMITIES: Without significant cyanosis or edema. IMPRESSION: 1. The patient with overall very poor health and adult failure to thrive. 2. Left upper lung mass, likely malignancy. The patient does not want any further treatment. 3. Exacerbation of severe underlying chronic obstructive pulmonary disease, improving with treatment. 4. Generalized weakness and failure to thrive. The patient is refusing to go to rehab, would rather go home with help. 5. Moderate protein-calorie malnutrition related to his health. 6. Poor long-term prognosis. 7. Generalized weakness. The patient working with physical therapy. LUIS DE LUNA MD CM:PNTRANS [id number] LUIS DE LUNA MD 03/30/17 1444 interface
--- NOTE | ~2017-03-25 | PR ---
[place], [place] PROGRESS NOTE NAME: JESS CASTELLANO [facility] #: [id number] UNIT #: [id number] ROOM: 401 DOCTOR: LUIS DE LUNA MD BIRTHDATE: [birth year] DOS: 03/30/2017 SUBJECTIVE: The patient is gradually feeling better, still says he is not ready to go home and he is still trying to decide between rehab and going to home. GENERAL APPEARANCE: The patient is alert and oriented x 3, in no visible distress. VITAL SIGNS: At the time of discharge, vital signs, blood pressure 126/77, heart rate of 110 beats per minute, breathing 20 times per minute, afebrile. HEENT AND NECK: Exam within normal limits. CARDIOVASCULAR SYSTEM: Heart rate is regular in rate and rhythm. S1 and S2 normally audible. LUNGS: Clear to auscultation. ABDOMEN: Soft, nontender. No obvious organomegaly. Bowel sounds are present. EXTREMITIES: Without significant cyanosis or edema. IMPRESSION: 1. The patient has exacerbation of severe underlying chronic obstructive pulmonary disease with acute over chronic respiratory failure, continues to improve with treatment. 2. Slowly and progressively increasing left upper lung mass, probable malignancy that the patient does not want any treatment for. 3. Generalized weakness and adult failure to thrive. I was trying to get him to rehabilitation, but patient is quite resistant and also does not want to go to home. Right now, I will give him till tomorrow to decide. 2. Moderate protein-calorie malnutrition. The patient on nutritional supplements. Dietary are following him. LUIS DE LUNA MD CM:PNTRANS [id number] LUIS DE LUNA MD 03/31/17 0508 interface
--- NOTE | ~2017-03-25 | WRIGHTHP ---
[place], [place] PATIENT HISTORY AND PHYSICAL EXAM NAME: JESS CASTELLANO [facility] #: [id number] UNIT #: [id number] ROOM: 401 DOCTOR: LUIS DE LUNA MD BIRTHDATE: [birth year] DOS: 03/26/2017 HISTORY OF PRESENT ILLNESS: The patient is a 71-year-old gentleman with: 1. History of advanced end-stage COPD. 2. Increasing lung mass. Apparently, the patient decided against any further workup or treatment. Left upper lung mass. 3. Advanced end-stage COPD with chronic respiratory failure and oxygen dependence. 4. Generalized weakness and adult failure to thrive. 5. Moderate protein calorie malnutrition. The patient presented to the Emergency Department with increasing shortness of breath and weakness. The patient presented to the Emergency Department and was found to be dehydrated and very weak and recommended for admission and further management for exacerbation of severe underlying chronic obstructive pulmonary disease and congestive heart failure to thrive with generalized weakness and dehydration. The patient says he has not been eating well for a few days because he had developed diarrhea and some nausea for about 3 days back. REVIEW OF SYSTEMS: LUNGS: Increased shortness of breath. GASTROINTESTINAL: Recent diarrhea and some nausea for a few days. CARDIOVASCULAR: No chest pains or palpitations. FAMILY HISTORY: Noncontributory. SOCIAL HISTORY: The patient lives by himself. Long-term history of nicotine smoke dependence. Denies any alcohol or drug abuse. FAMILY HISTORY: Noncontributory. ALLERGIES: No known drug allergies. HOME MEDICATIONS: The patient takes Daliresp, aspirin, bronchodilators, DuoNebs, lorazepam. PHYSICAL EXAMINATION: GENERAL: Alert, oriented x 3, very weak with generalized muscle wasting, wears oxygen by nasal cannula, in no visible distress, but significantly shortness of breath. HEENT AND NECK: Extraocular movements are intact. Sclerae are anicteric. Oral mucosa is moist and clean. No obvious facial weakness. Neck is supple without any lymphadenopathy. No thyromegaly. No JVD. No carotid arterial bruits. LUNGS: Decreased breath sounds all over on lung auscultation. CARDIOVASCULAR SYSTEM: Heart rate is regular in rate and rhythm. S1 and S2 normally audible. No significant murmur or any other abnormal cardiac sounds. ABDOMEN: Soft, nontender. No obvious organomegaly. Bowel sounds are present. No obvious herniation. [place], [place] PATIENT HISTORY AND PHYSICAL EXAM [facility] [id number] UNIT #: [id number] ROOM: 401 DOCTOR: CALIXTO GUTIÉRREZ,LUIS Cooper BIRTHDATE: [birth year] EXTREMITIES: Without significant cyanosis or edema. Warm to touch. CENTRAL NERVOUS SYSTEM: Alert and oriented x 3. Generalized weakness and generalized muscle weakness. LABORATORY AND DIAGNOSTIC DATA: Normal serum electrolytes. Chest x-ray with stable mass within the left perihilar region in the right lower lobe. Normal serum electrolytes. Albumin low at 2.7, hemoglobin 10, white cell count 12,500. IMPRESSION AND PLAN: 1. The patient with exacerbation of severe underlying chronic obstructive pulmonary disease, acute over chronic respiratory failure, to be treated with bronchodilators, oxygen, nebulizer treatments. 2. Adult failure to thrive and generalized weakness and apparently lung malignancy. The patient to be kept on comfort measures. 3. Recent viral gastroenteritis with some nausea and diarrhea, apparently making and even weaker and acutely dehydrated. The patient is being treated with hydration and normal saline and his serum electrolytes have been monitored and treated. 4. Moderate to severe protein-calorie malnutrition. The patient will be followed by Dietary and I will start him on boost supplements. 5. The patient works with physical therapy for generalized weakness and adult failure to thrive. LUIS DE LUNA MD CM:HISPHYS:PATIENT HISTORY AND PHYSICAL EXAMINATION [id number] LUIS DE LUNA MD 03/26/17 1359 interface
[2017-03-25 21:39] VITALS: BP 121/88
[2017-03-25 22:28] LABS: BASO % 0.2 % (0.0-1.0); EOS # 0.3 10*3/uL (0.0-0.4); EOS % 2.5 % (1.0-4.0); HEMOGLOBIN 10.3 g/dl (14.0-18.0); IG # 0.1 10*3/uL (0.0-0.1); LYMPH # 1.2 10*3/uL (1.3-4.4); LYMPH % 9.8 % (27.0-41.0); MEAN CELL VOLUME 93.3 fl (80.0-94.0); MEAN CORPUSCULAR HGB CONC 32.2 g/dl (33.0-37.0); MEAN PLATELET VOLUME 8.6 fl (9.6-12.3); MONO # 0.9 10*3/uL (0.1-1.0); MONO % 6.9 % (3.0-9.0); NEUT % 80.1 % (47.0-73.0); PLATELET COUNT AUTOMATED 453 10*3/uL (130-400); RED BLOOD COUNT 3.43 10*6/uL (4.50-5.90); RED CELL DISTRI WIDTH 14.7 % (0-14.5); WHITE BLOOD COUNT 12.5 10*3/uL (4.8-10.8)
[2017-03-25 22:42] LABS: ALBUMIN 2.7 gm/dl (3.1-4.5); ALKALINE PHOSPHATASE 67 U/L (45-117); BILIRUBIN, TOTAL 0.2 mg/dl (0.2-1.0); BUN 17 mg/dl (7-24); CARBON DIOXIDE 33 mmol/L (21-32); CHLORIDE 102 mmol/L (98-107); EST GLOM FILT AFRICAN AMERICAN > 60 ml/min; GLUCOSE 103 mg/dL (65-99); POTASSIUM 3.9 mmol/L (3.5-5.1); SGOT/AST 15 IU/L (3-35); SGPT/ALT 11 U/L (12-78); SODIUM 139 mmol/L (136-145); TOTAL PROTEIN 6.2 gm/dL (6.4-8.2)
[2017-03-26 02:15] VITALS: BP 110/75
[2017-03-26 07:33] LABS: BUN 16 mg/dl (7-24); CARBON DIOXIDE 35 mmol/L (21-32); CHLORIDE 100 mmol/L (98-107); EST GLOM FILT AFRICAN AMERICAN > 60 ml/min; GLUCOSE 87 mg/dL (65-99); POTASSIUM 4.2 mmol/L (3.5-5.1); SODIUM 139 mmol/L (136-145)
[2017-03-26 08:00] VITALS: BP 110/67
[2017-03-26 11:01] LABS: BILIRUBIN NEGATIVE (NEGATIVE); BLOOD NEGATIVE (NEGATIVE); CLARITY CLEAR (CLEAR); COLOR YELLOW (YELLOW); GLUCOSE NEGATIVE (NEGATIVE); KETONE NEGATIVE (NEGATIVE); LEUKO ESTERASE NEGATIVE (NEGATIVE); NITRITE NEGATIVE (NEGATIVE); PH 6.5 (5.0-9.0); PROTEIN NEGATIVE (NEGATIVE); SPECIFIC GRAVITY <= 1.005 (1.005-1.030); UROBILINOGEN 0.2 E.U./dl (0.2-1.0)
[2017-03-26 11:09] LABS: RBC 0-2 rbc/hpf (0-2); URINE REFLEX COMMENT NO (NO)
[2017-03-26 16:00] VITALS: BP 109/41
[2017-03-26 20:00] VITALS: BP 133/69
[2017-03-27 00:13] VITALS: BP 136/66
[2017-03-27 07:27] LABS: BUN 10 mg/dl (7-24); CARBON DIOXIDE 35 mmol/L (21-32); CHLORIDE 104 mmol/L (98-107); EST GLOM FILT AFRICAN AMERICAN > 60 ml/min; GLUCOSE 88 mg/dL (65-99); POTASSIUM 4.1 mmol/L (3.5-5.1); SODIUM 144 mmol/L (136-145)
[2017-03-27 08:00] VITALS: BP 94/52
[2017-03-27 12:00] VITALS: BP 92/55
[2017-03-27 16:00] VITALS: BP 99/65
[2017-03-27 20:00] VITALS: BP 100/60
[2017-03-28] VITALS: BP 105/60
[2017-03-28 07:34] LABS: BUN 9 mg/dl (7-24); CARBON DIOXIDE 34 mmol/L (21-32); CHLORIDE 106 mmol/L (98-107); GLUCOSE 86 mg/dL (65-99); SODIUM 144 mmol/L (136-145)
[2017-03-28 07:35] LABS: EST GLOM FILT AFRICAN AMERICAN > 60 ml/min
[2017-03-28 08:00] VITALS: BP 100/62
[2017-03-28 12:00] VITALS: BP 127/52
[2017-03-28 16:00] VITALS: BP 97/70
[2017-03-28 20:00] VITALS: BP 95/62
[2017-03-29] VITALS: BP 98/62
[2017-03-29 08:00] VITALS: BP 107/60
[2017-03-29 12:00] VITALS: BP 87/56
[2017-03-29 16:00] VITALS: BP 100/70
[2017-03-29 20:00] VITALS: BP 107/75
[2017-03-30] VITALS: BP 102/55; BP 103/64
[2017-03-30 08:00] VITALS: BP 113/69
[2017-03-30 12:00] VITALS: BP 126/77
[2017-03-30 16:00] VITALS: BP 110/63
[2017-03-30 20:00] VITALS: BP 126/82
[2017-03-31] VITALS: BP 103/64
[2017-03-31 08:00] VITALS: BP 92/57
[2017-03-31 12:00] VITALS: BP 116/63
[2017-03-31 16:00] VITALS: BP 112/71
[2017-03-31 20:00] VITALS: BP 110/73
[2017-04-01] VITALS: BP 136/81
[2017-04-01 08:00] VITALS: BP 146/76
[2017-04-01] MEDS ORDERED: AUGMENTIN 875-875 MG PO (12:46)
== END 2017-04-01 12:12 | disposition other institution (70) | DRG 189 ==
LOC: ED 21:36 → 4E 23:09 → EDHOLD 23:09 → 4E 23:41
PROVIDERS: Emergency Medicine Emergency Medical Services; Internal Medicine
DX: J96.20 Acute and chronic respiratory failure, unspecified whether with hypoxia or hypercapnia (principal); E43 Unspecified severe protein-calorie malnutrition; E86.0 Dehydration; J44.1 Chronic obstructive pulmonary disease with (acute) exacerbation; C34.92 Malignant neoplasm of unspecified part of left bronchus or lung; Z68.1 Body mass index [BMI] 19.9 or less, adult; R62.7 Adult failure to thrive; R64 Cachexia; A08.4 Viral intestinal infection, unspecified; I25.10 Atherosclerotic heart disease of native coronary artery without angina pectoris; H91.90 Unspecified hearing loss, unspecified ear; I25.2 Old myocardial infarction; Z85.118 Personal history of other malignant neoplasm of bronchus and lung; Z80.0 Family history of malignant neoplasm of digestive organs; Z82.5 Family history of asthma and other chronic lower respiratory diseases; Z82.49 Family history of ischemic heart disease and other diseases of the circulatory system